=== PATIENT | male | born 1985 | race Caucasian/White ===

== ENCOUNTER 2021-11-09 10:20 | Emergency (ER) | payer OTHER ==
[~2021-11-09 10:20] MED LIST: KEFLEX CAP 500500 MG PO; NORCO 5-325 TA1 EACH PO; TORADOL 10 MG T10 MG PO; ZOFRAN ODT 4 MG4 MG PO
[2021-11-09] MEDS ORDERED: BACTRIM DS TAB1 EACH PO (10:41)
== END 2021-11-09 11:06 | disposition home or self-care (01) ==
LOC: ER1 10:20
DX: L03.012 Cellulitis of left finger (principal); F17.210 Nicotine dependence, cigarettes, uncomplicated; W45.8XXA Other foreign body or object entering through skin, initial encounter
CPT/HCPCS: 96372; 99283; J0690

== ENCOUNTER 2022-02-11 23:25 | Emergency (ER) | payer SELFPAY ==
[~2022-02-11 23:25] MED LIST changes: +BACTRIM DS TAB1 EACH PO
[2022-02-12] MEDS ORDERED: VALACYCLOVIR1000 MG PO (03:54)
[2022-02-12] MEDS ORDERED: PREDNISONE20 MG PO (03:54)
[2022-02-12] MEDS ORDERED: ERYTHROMYCIN O3.5 GM OU (03:54)
== END 2022-02-12 04:53 | disposition home or self-care (01) ==
LOC: ER1 23:25
DX: G51.0 Bell's palsy (principal); H70.91 Unspecified mastoiditis, right ear; Z79.01 Long term (current) use of anticoagulants; F17.200 Nicotine dependence, unspecified, uncomplicated
CPT/HCPCS: 70450; 99284